=== PATIENT | female | born 1995 | race African-American/Black ===

== ENCOUNTER 2016-06-23 17:18 | Inpatient (IN) ==
[2016-06-23] MEDS ORDERED: IBUPROFEN 800 MG TABLET PO PRN (19:07)
[2016-06-23] MEDS ORDERED: ONDANSETRON 4 MG/2 ML VIAL IV PRN (19:07)
[2016-06-23] MEDS ORDERED: ACETAMINOPHEN/CODEINE 300-30 MG TABLET PO PRN (19:09)
--- NOTE | 2016-06-23 19:15 | Emergency Department Note ---
Arrival - Arrival Chief Complaint: Abscess Stated Complaint: bartholin cyst ED Nursing Triage Note: c/o having an abscess on the vaginal area that started on friday., states that she noticed the area on friday but has gotten worse today., denies having increase temp., states she has a history of bartholian cyst Mode of Arrival: Ambulatory Time Seen by Provider: 06/23/16 18:13 - History of Present Illness HPI Narrative: 20 year old previously healthy female presents with 3 days of vaginal abscess. Patient reports pain and swelling in left labia for 3 days. She denies any fevers, chills, purulent drainage, urinary symptoms or abdominal pain. Patient has history of two previous Bartholin's abscesses that have been incised and drained in past. Her last episode, her OBGYN said she would need surgery to remove cyst if it recurred. Allergies/Adverse Reactions: Allergies Allergy/AdvReac Type Severity Reaction Status Date / Time No Known Allergies Allergy Unverified 06/23/16 17:41 Home Medications: Home Medications Medication Instructions Recorded Confirmed Type No Known Home Medications [No 06/23/16 06/23/16 History Known Home Medications] Review of System - Review of System Constitutional: Absent: chills, fever Eyes: Absent: redness, vision change Head/Ears/Nose/Throat: Absent: earache, nasal drainage Respiratory: Absent: cough, wheezing Cardiovascular: Absent: chest pain, palpitations Gastrointestinal: Absent: abdominal pain, nausea, vomiting Genitourinary female: Present: genital lesions. Absent: dysuria, frequency Musculoskeletal: Absent: back pain, leg pain, neck pain Skin: Present: lesions (vaginal abscess). Absent: rash Neurological: Absent: headache Medical,Surgical,& Family Hx - Medical History Medical History: noncontributory - Social History Smoking Status: Never smoker Frequency of Alcohol Use: None Type of Drug Use: None Exam Vital Signs: Vital Signs Temperature 99.7 F H 06/23/16 17:35 Pulse Rate 79 06/23/16 17:35 Respiratory Rate 16 06/23/16 17:35 Blood Pressure 123/82 06/23/16 17:35 O2 Sat by Pulse Oximetry 100 06/23/16 17:35 - General General appearance: alert, in no apparent distress - Head Head exam: Present: atraumatic, normocephalic, normal inspection - Eye Eye exam: Present: normal appearance, PERRL, EOMI - ENT ENT exam: Present: normal exam, normal oropharynx, mucous membranes moist - Neck Neck exam: Present: normal inspection, full ROM, trachea midline. Absent: lymphadenopathy - Chest Chest inspection: Present: normal inspection, symmetric chest wall rise. Absent : tenderness - Respiratory Respiratory exam: Present: normal lung sounds bilaterally. Absent: rales, rhonchi, wheezes - Cardiovascular Cardiovascular exam: Present: regular rate, normal rhythm, normal heart sounds. Absent: murmur, rubs, gallop - Abdominal Exam Abdominal exam: Present: soft, normal bowel sounds. Absent: distention, tenderness - External exam: Present: erythema, tenderness, swelling (left Bartholin abscess with swelling, fluctance) - Extremities Exam Extremities exam: Present: normal inspection, full ROM. Absent: tenderness - Back Exam Back exam: Present: normal inspection, full ROM. Absent: tenderness - Neurological Exam Neurological exam: Present: alert, oriented X3, CN II-XII intact - Psychiatric Psychiatric exam: Present: normal affect, normal mood - Skin Skin exam: Present: warm, dry, intact Course - Consultations Consultation #1: When attempting to consent patient for incision and drainage of Bartholin's cyst , mother and daughter requesting OR treatment and conscious sedation. According to mother, patient has had panic attacks during previous procedures, and patient refused I&D today. I discussed this with Dr. Haque of [facility]. Given this is her third recurrence of Bartholin's abscess, will admit for marsupialization in AM. Disposition Clinical Impression: Bartholin's gland abscess Case discussed with: patient, patient's family Disposition: Still a Patient Condition: Stable Time of Disposition: 19:20
[2016-06-23 19:40] LABS: Basophils % 0.1 % (0.0-0.8); Eosinophils % 0.3 % (0.00-10.9); Hematocrit 39.8 VOL% (35.7-47.0); Hemoglobin 13.4 GM/DL (12.0-16.0); Immature Granulocytes % 0.3 %; Immature Granulocytes Absolute 0.03 #; Lymphocytes # 1.6 10*3/uL (1.4-4.0); Lymphocytes % 16.8 % (21.3-54.2); Mean Corpuscular HGB Conc 33.7 GM/DL (32-36); Mean Corpuscular Hemoglobin 28 PG (27-34); Mean Corpuscular Volume 84.3 FL (87-102); Mean Platelet Volume 10.2 FL (9.6-12.0); Monocytes # 0.6 10*3/uL (0.11-0.8); Monocytes % 6.3 % (1.7-12.7); Neutrophils # 7.3 10*3/uL (1.4-7.4); Neutrophils % 76.2 % (38.7-73.9); Platelet Count 237 T/CUMM (130-400); Red Blood Count 4.72 MC/CUMM (3.8-5.5); Red Cell Distribution Width 13.2 % (9.3-17.3); White Blood Count 9.6 T/CUMM (4-12)
[2016-06-23] MEDS ORDERED: cefTRIAXone 1,000 MG in SODIUM CHLORIDE 0.9% 100 ML IV SCH (20:00)
[2016-06-23 20:05] LABS: Apearance,Urine CLEAR (Clear); Bacteria,Urine Occasional /HPF (Few); Bilirubin,Urine Negative (Negative); Blood, Urine Small mg/dL (Negative); Glucose,Urine (UA) Negative (Negative); Ketones,Urine 5 mg/dL (Negative); Mucus,Urine Occasional /LPF (Occasional); Nitrite,Urine Negative (Negative); Protein,Urine Negative; RBC,Urine 1 /HPF (0-4); Squamous Epithelial Cell,Urine Occasional /HPF (0-10); Urine Color Straw (Yellow); Urine Specific Gravity 1.011 (1.001-1.035); Urine Urobilinogen < 2.0 EU/DL (0.2-1.0); WBC,Urine 3 /HPF (0-6)
[2016-06-23 20:07] LABS: Calcium 9.6 MG/DL (8.5-10.1); Osmolality,Calculated 272.8 MOS/KG (273-304); Potassium 3.6 MMOL/L (3.5-5.1)
[2016-06-23] MEDS: LACTATED RINGERS 1,000 ML IV SCH (22:15)
[2016-06-24] MEDS ORDERED: MEPERIDINE 25 MG/1 ML VIAL IV PRN (04:20)
[2016-06-24] MEDS: LACTATED RINGERS 1,000 ML IV SCH ×2 (05:55→11:35)
--- NOTE | 2016-06-24 17:22 | OB/GYN History & Physical ---
History of Present Illness Chief complaint: Left Bartholin abscess History of present illness: Ms. Max is a 20 year old female 0 who presents with recurrent left Bartholin abscess. Patient is noticed increased swelling the left labia over the last 3 days. She denies any fever chills or drainage at this time. Patient also note that the Bartholin had been excised in the past twice but not on the same side. Patient is concerned of whether or not marsupialization is needed at this particular time. The abscess spontaneously started draining on its own through the night and early this morning there is hardly visible enlargement of the Bartholin's at this time. We will proceed with sitz bath IV antibiotics possible discharge in a.m. Home Medications Medication Instructions Recorded Confirmed Type No Known Home Medications [No 06/23/16 06/23/16 History Known Home Medications] Allergies Allergy/AdvReac Type Severity Reaction Status Date / Time Pork AdvReac Nausea Verified 06/24/16 00:49 Medical,Surgical,& Family Hx - Medical History Psychological: History of: Psychiatric Problems (HX of panic attacks x2, last in 2015. Never on meds. Never went to hospital) Neurology: No history of: Migraine, Seizures (Patient denies every having a seizure.) HEENT: History of: Eye Problem (wears prescription glasses. Patient unsure of what visual problem she has.) Genitourinary: History of: Recurring Urinary Tract Infections Musculoskeletal: No history of: Amputation Reproductive: History of: Reproductive Problems (recurrent Bartholin's cysts) No history of: Sexually Transmitted Disorders Other: No history of: MRSA, Miscellaneous Medical Problems (patient denies) - Surgical History Thoracic Surgeries: Patient denies;: Organ Transplant Reproductive Surgeries: Surgical HX of;: Gynecologic Surgery (HX: I&D X2 in 2016 in clinic office of recurrent Bartholin's cyst) - Family History Family History: Reports;: Family Cancer (Maternal Uncle--prostate cancer/colon Ca, Maternal Aunt--Breast), Family Diabetes (Maternal Grandfather, Paternal Grandmother), Family Heart Disease (CHF--Maternal Uncle), Family Hematology ( Anemia--Mother, Maternal Grandmother, Sickle Cell-Aunt), Family Hypertension ( Maternal Grandfather, Paternal Grandmother), Family Psychiatric Problems ( Maternal Great Grandfather--Schizophrenia), Family Stroke (Aunt, Maternal Great Grandmother), Additional Family History (Lupus--Mother) - Social History Smoking Status: Never smoker Frequency of Alcohol Use: None Type of Drug Use: None Exam [employer] - Constitutional Vitals: Vital Signs Temp Pulse Resp BP Pulse Ox 06/24/16 16:32 98.2 F 69 18 103/64 98 06/24/16 11:30 98.4 F 71 18 101/58 100 06/24/16 07:49 98.1 F 74 20 102/58 98 06/24/16 04:00 97.5 F L 77 18 112/70 100 06/24/16 02:00 18 06/24/16 00:00 98.0 F 68 16 96/59 100 06/23/16 21:00 99.2 F 91 H 20 127/90 100 General appearance: no acute distress - Antepartum / Post Antepartum Exam Vulva: bilateral: normal Vagina: Present: normal moisture Uterus exam: Present: normal size - Head Head exam: Present: normal inspection - Eye Eye exam: Present: EOMI Pupils: Present: CHEL - ENT ENT exam: Present: normal exam - Neck Neck exam: Present: normal inspection - Respiratory Respiratory exam: Present: clear to auscultation bilaterally - Breast Breasts: as per HPI Menstruation: as per HPI - Cardiovascular Cardiovascular exam: Present: regular rate and rhythm - GI/Abdominal GI/Abdominal exam: Present: normal bowel sounds - Extremities Exam Extremities exam: Present: normal inspection - Back Exam Back exam: Present: normal inspection - Neurological Exam Neurological exam: Present: alert, oriented X3, normal gait - Psychiatric Psychiatric exam: Present: normal affect - Skin Skin exam: Present: normal color Assessment and Plan (1) Bartholin's gland abscess Status: Acute Assessment and plan: Bartholin abscess, presently has been drained without any significant discomfort at this time. There was no cultures obtained of this particular area when this was noted throughout the evening. Patient received IV Rocephin IV fluids and sitz baths. Presently she is without any pain or discomfort will possibly discharge in a.m. with p.o. antibiotics and also have discussed with the patient the need for refills for the future so that when she notices this area starting to become enlarged she can initiate antibiotics at that time. Discussed hygiene as well as contraception options as well. Current Visit: Yes Results - Labs CBC & BMP: 06/23/16 19:26 06/23/16 19:26
[2016-06-24] MEDS: CIPROFLOXACIN 500 MG TABLET PO SCH (20:07)
[2016-06-24] MEDS ORDERED: FLUCONAZOLE 150 MG TABLET PO ONE (21:00)
[2016-06-25] MEDS: CIPROFLOXACIN 500 MG TABLET PO SCH (08:37)
[2016-06-25 08:58] VITALS: BP 111/64
--- NOTE | 2016-06-25 09:56 | Discharge Summary ---
Hospital Course - Hospital Course Hospital Course: Second hospital day Patient admitted with approximately 3-4 day history of a swollen left labia. Patient a previous history of what assumed to be a Bartholin's abscess. This area was I&D in the office in the past. Patient desired a marsupialization on this particular admission since this was the third occurrence. After evaluating this area of concern it is started to drain and there was no noticeable fluctuance in order to warrant a operative procedure. Patient was treated conservatively with IV antibiotics, sitz baths, and warm compresses. She will be discharged with ciprofloxacin 500 every 12 to be taken over the next 7 days. She will also have a prescription for the future just in case if this area starts to become concerned she can initiate antibiotics prior to it becoming enlarged. We will also discharge is patient with Terazol cream to be used as needed for a yeast vaginitis as result of the IV antibiotics. Patient will follow my office on a as needed basis. And also initiate control pills with her next cycle Diagnosis - Discharge Diagnosis (1) Bartholin's gland abscess Status: Acute Discharge Plan - Discharge Data Condition at Discharge: Stable Discharge Diet: advance to your usual diet Activity: resume usual activities as tolerated Hygiene: may shower, may tub bathe Weight Bearing at Discharge: full weight bearing Driving: no restrictions Contact your physician if you experience:: fever over 101, Difficulty voiding, Shortness of breath, Bleeding - Discharge Medications New Acetamin/Codeine 300-30 Tab [Tylenol/Codeine #3] 1 tablet PO Q4H PRN #20 tablet PRN Reason: Pain Mild (1-3) Ciprofloxacin Tab [Cipro Tab] 500 mg PO BID #14 tablet Ethinyl Estrad/Norges 0.03-0.3 [Lo Ovral 28] 1 tablet PO DAILY #30 tablet Terconazole 0.4% Vag Cream [Terazol 7 Vag Cream] 1 applicator VAG BEDTIME # 45 gm - Follow Up or Referral - Forms/Instructions Exam - Constitutional Vitals: Period Temp Pulse Resp BP Sys/Sam Pulse Ox Last 24 Hr 97.9 F-98.4 F 56-76 18-20 100-113/55-76 96-100 Discharge Results Procedures and tests throughout hospitalization: Pending Orders 06/23/16 Urine Culture Routine Labs on day of discharge: Preliminary micro results at discharge 06/23/16 Unknown Urine Culture - Preliminary Urine,Voided Gram Negative Rods DS: Provider Date of admission: 06/23/16 19:07 Primary care physician: . No PCP Attending physician on admission: Sherita Haque MD Discharging clinician: Sherita Haque MD
== END 2016-06-25 11:59 | disposition home or self-care (01) | DRG 759 ==
LOC: EDBD → N.ED 17:18 → N.EDINP 19:07 → N.OB 21:54 → N.2E 06-24 11:02
PROVIDERS: ADMIT Obstetrics & Gynecology; ATTEND Obstetrics & Gynecology